=== PATIENT | female | born 1980 | race Caucasian/White ===

== ENCOUNTER 2018-07-15 06:56 | Emergency (ER) | payer OTHER ==
[~2018-07-15] VITALS: Ht 167.6 cm; Wt 113.4 kg
[~2018-07-15 06:56] MED LIST: FLONASE 0.05%50 MCG NASAL; NABUMETONE 750750 M1 PO; SUDOGEST30 MG PO
[2018-07-15] MEDS ORDERED: TRAMADOL 50 MG50 MG PO (07:36)
[2018-07-15] MEDS ORDERED: NAPROSYN500 MG PO (07:36)
[2018-07-15] MEDS ORDERED: ZPAK PO (07:36)
[2018-07-15 07:55] VITALS: BP 122/68
== END 2018-07-15 08:00 | disposition home or self-care (01) ==
LOC: ER 06:56
DX: J01.90 Acute sinusitis, unspecified (principal); J06.9 Acute upper respiratory infection, unspecified; R51 Headache; F17.210 Nicotine dependence, cigarettes, uncomplicated; Z88.0 Allergy status to penicillin

== ENCOUNTER 2018-12-13 10:19 | Emergency (ER) | payer OTHER ==
[~2018-12-13] VITALS: Ht 167.6 cm; Wt 108.9 kg
[~2018-12-13 10:19] MED LIST changes: +NAPROSYN500 MG PO; +TRAMADOL 50 MG50 MG PO; +ZPAK PO
[2018-12-13] MEDS ORDERED: ETODOLAC 400 M400 M1 PO (10:23)
[2018-12-13] MEDS ORDERED: TRAMADOL 50 MG50 MG PO (10:42)
[2018-12-13] MEDS ORDERED: MEDROLDOSEPACK PO (10:42)
[2018-12-13] MEDS ORDERED: NORFLEX100 MG PO (10:42)
[2018-12-13 11:18] VITALS: BP 131/81
== END 2018-12-13 11:19 | disposition home or self-care (01) ==
LOC: ER 10:19
DX: M54.42 Lumbago with sciatica, left side (principal); F17.210 Nicotine dependence, cigarettes, uncomplicated; G43.909 Migraine, unspecified, not intractable, without status migrainosus; Z88.0 Allergy status to penicillin; Z98.890 Other specified postprocedural states; Z85.41 Personal history of malignant neoplasm of cervix uteri

== ENCOUNTER 2019-05-01 20:52 | Emergency (ER) | payer OTHER ==
[~2019-05-01] VITALS: Ht 167.6 cm; Wt 108.9 kg
[~2019-05-01 20:52] MED LIST changes: +ETODOLAC 400 M400 M1 PO; +MEDROLDOSEPACK PO; +NORFLEX100 MG PO
[2019-05-01] MEDS ORDERED: AZITHROMYCIN 2250 MG PO (23:17)
[2019-05-01 23:36] VITALS: BP 144/77
== END 2019-05-01 23:38 | disposition home or self-care (01) ==
LOC: ER 20:52
DX: J02.0 Streptococcal pharyngitis (principal); F17.210 Nicotine dependence, cigarettes, uncomplicated; G43.909 Migraine, unspecified, not intractable, without status migrainosus; Z88.0 Allergy status to penicillin

== ENCOUNTER 2019-06-28 20:41 | Emergency (ER) | payer BC ==
[~2019-06-28] VITALS: Ht 167.6 cm; Wt 113.4 kg
[~2019-06-28 20:41] MED LIST changes: +AZITHROMYCIN 2250 MG PO
[2019-06-28] MEDS ORDERED: NOHOMEMEDICATIONS (20:55)
[2019-06-28] MEDS ORDERED: MOBIC15 MG PO (22:55)
[2019-06-28] MEDS ORDERED: NORCO 5-325 TA1 EAC1 PO (22:55)
[2019-06-28 23:17] VITALS: BP 120/86
== END 2019-06-28 23:00 | disposition home or self-care (01) ==
LOC: ER 20:41
DX: S86.911A Strain of unspecified muscle(s) and tendon(s) at lower leg level, right leg, initial encounter (principal); G43.909 Migraine, unspecified, not intractable, without status migrainosus; F17.210 Nicotine dependence, cigarettes, uncomplicated; Z98.890 Other specified postprocedural states; Z85.848 Personal history of malignant neoplasm of other parts of nervous tissue; Z88.0 Allergy status to penicillin; X50.0XXA Overexertion from strenuous movement or load, initial encounter; Y92.89 Other specified places as the place of occurrence of the external cause; Y93.89 Activity, other specified; Y99.8 Other external cause status

== ENCOUNTER 2019-08-11 13:18 | Emergency (ER) | payer BC ==
[~2019-08-11] VITALS: Ht 167.6 cm; Wt 113.4 kg
[~2019-08-11 13:18] MED LIST changes: +MOBIC15 MG PO; +NOHOMEMEDICATIONS; +NORCO 5-325 TA1 EAC1 PO
[2019-08-11] MEDS ORDERED: TESSALON PERLE100 MG PO (14:47)
[2019-08-11] MEDS ORDERED: MEDROLDOSEPACK PO (14:47)
[2019-08-11] MEDS ORDERED: PROAIR HFA8.5 GM INH (14:47)
[2019-08-11 15:00] VITALS: BP 168/88
== END 2019-08-11 15:59 | disposition home or self-care (01) ==
LOC: ER 13:18
DX: J40 Bronchitis, not specified as acute or chronic (principal); G43.909 Migraine, unspecified, not intractable, without status migrainosus; F17.210 Nicotine dependence, cigarettes, uncomplicated; Z85.41 Personal history of malignant neoplasm of cervix uteri; Z98.890 Other specified postprocedural states; Z88.0 Allergy status to penicillin

== ENCOUNTER 2019-12-10 22:48 | Emergency (ER) | payer OTHER ==
[~2019-12-10] VITALS: Ht 167.6 cm; Wt 117.9 kg
[~2019-12-10 22:48] MED LIST changes: +PROAIR HFA8.5 GM INH; +TESSALON PERLE100 MG PO
[2019-12-10] MEDS ORDERED: IBUPROFEN 800800 M1 PO (22:56)
[2019-12-11 00:32] LABS: CALCIUM 8.2 mg/dL (8.5-10.1); CREATININE 0.4 mg/dL (0.6-1.0); POTASSIUM 3.6 mmol/L (3.5-5.1)
[2019-12-11] MEDS ORDERED: MEDROLDOSEPACK PO (00:39)
[2019-12-11] MEDS ORDERED: NAPROSYN500 MG PO (00:39)
[2019-12-11] MEDS ORDERED: NORFLEX100 MG PO (00:39)
[2019-12-11 00:55] VITALS: BP 139/77
== END 2019-12-11 01:07 | disposition home or self-care (01) ==
LOC: ER 22:48
PROVIDERS: Emergency Medicine
DX: M77.9 Enthesopathy, unspecified (principal); R10.9 Unspecified abdominal pain; M79.604 Pain in right leg; M79.605 Pain in left leg; G43.909 Migraine, unspecified, not intractable, without status migrainosus; F17.210 Nicotine dependence, cigarettes, uncomplicated; Z88.0 Allergy status to penicillin; X58.XXXA Exposure to other specified factors, initial encounter; Y93.89 Activity, other specified; Y92.89 Other specified places as the place of occurrence of the external cause; Y99.0 Civilian activity done for income or pay

== ENCOUNTER 2020-03-17 17:21 | Emergency (ER) | payer OTHER ==
[~2020-03-17] VITALS: Ht 167.6 cm; Wt 117.9 kg
[~2020-03-17 17:21] MED LIST changes: +IBUPROFEN 800800 M1 PO
[2020-03-17 17:45] LABS: URINE BILIRUBIN NEGATIVE (Negative); URINE BLOOD 3+ (Negative); URINE CLARITY CLEAR; URINE COLOR YELLOW; URINE GLUCOSE-RANDOM* NEGATIVE (Negative); URINE KETONES NEGATIVE (Negative); URINE NITRITE-REFLEX NEGATIVE (Negative); URINE PROTEIN (DIPSTICK) 1+ (Negative); URINE UROBILINOGEN 0.2 E.U./dl (0.2-1.0)
[2020-03-17 17:48] LABS: URINE LEUKOCYTES-REFLEX 3+ (Negative)
[2020-03-17 17:54] LABS: URINE WBC-REFLEX >25 Many /HPF (0-5)
[2020-03-17 17:55] LABS: BACTERIA-REFLEX 1-9 Few /HPF (None Seen); CASTS None Seen /LPF (None Seen); CRYSTALS None Seen /LPF (None Seen); SQUAMOUS 0-3 Few /LPF (0-3); URINE RBC 0-2 Rare /HPF (0-2)
[2020-03-17 18:03] LABS: HEMATOCRIT 45.3 % (37.0-47.0); HEMOGLOBIN 15.8 gm/dL (12.0-15.0); MCH 30.9 pg (26.0-34.0); MCHC 34.8 g/dL (28.0-37.0); MCV 88.8 fL (80.0-100.0); RBC 5.1 mil/uL (4.20-5.00); RDW 15.1 % (10.5-14.5); WBC 9.7 thou/uL (4.0-11.0)
[2020-03-17 18:17] LABS: CALCIUM 8.8 mg/dL (8.5-10.1); CREATININE 0.7 mg/dL (0.6-1.0); POTASSIUM 3.9 mmol/L (3.5-5.1)
[2020-03-17 18:23] LABS: ALBUMIN 3.6 g/dL (3.4-5.0); TOTAL BILIRUBIN 0.6 mg/dL (0.2-1.0); TOTAL PROTEIN 7.3 g/dL (6.4-8.2)
[2020-03-17] MEDS ORDERED: NORCO 7.5-3251 EACH PO (19:46)
[2020-03-17] MEDS ORDERED: BACTRIM DS TAB1 EACH PO (19:46)
[2020-03-17] MEDS ORDERED: ONDANSETRON HCL4 M2 PO (19:46)
[2020-03-17 21:01] VITALS: BP 120/79
== END 2020-03-17 21:07 | disposition home or self-care (01) ==
LOC: ER 17:21
PROVIDERS: Emergency Medicine; Physician Assistant
DX: N12 Tubulo-interstitial nephritis, not specified as acute or chronic (principal); R50.9 Fever, unspecified; R11.0 Nausea; R14.0 Abdominal distension (gaseous); R33.9 Retention of urine, unspecified; G43.909 Migraine, unspecified, not intractable, without status migrainosus; F17.210 Nicotine dependence, cigarettes, uncomplicated; Z98.890 Other specified postprocedural states; Z85.41 Personal history of malignant neoplasm of cervix uteri; Z88.0 Allergy status to penicillin

== ENCOUNTER 2020-05-01 02:02 | Emergency (ER) | payer OTHER ==
[~2020-05-01] VITALS: Ht 167.6 cm; Wt 117.9 kg
[~2020-05-01 02:02] MED LIST changes: +BACTRIM DS TAB1 EACH PO; +NORCO 7.5-3251 EACH PO; +ONDANSETRON HCL4 M2 PO
[2020-05-01 03:45] LABS: ABSOLUTE NEUTROPHILS 4.3 thou/uL (1.4-8.2); BASOPHILS 0.8 % (0.0-2.0); EOSINOPHILS 1.7 % (0.0-3.0); HEMATOCRIT 43.4 % (37.0-47.0); HEMOGLOBIN 14.6 gm/dL (12.0-15.0); MCH 30.1 pg (26.0-34.0); MCHC 33.6 g/dL (28.0-37.0); MCV 89.6 fL (80.0-100.0); MONOCYTES 5.2 % (1.0-8.0); PLATELET COUNT 245 thou/uL (150-400); POLYS 50.3 % (36.0-66.0); RBC 4.85 mil/uL (4.20-5.00); RDW 15.9 % (10.5-14.5); WBC 8.5 thou/uL (4.0-11.0)
[2020-05-01 03:48] LABS: ANION GAP 9 mmol/L (7-16); BUN 12 mg/dL (7-18); CHLORIDE 104 mmol/L (98-107); CO2 26 mmol/L (21-32); CREATININE 0.7 mg/dL (0.6-1.0); GLUCOSE 119 mg/dL (74-106); POTASSIUM 3.7 mmol/L (3.5-5.1); SODIUM 139 mmol/L (136-145)
[2020-05-01 03:55] LABS: ALBUMIN 3.5 g/dL (3.4-5.0); DIRECT BILIRUBIN < 0.1 mg/dL (<0.1-0.2); SGOT 20 U/L (15-37); SGPT 35 U/L (30-65); TOTAL BILIRUBIN 0.2 mg/dL (0.2-1.0); TOTAL PROTEIN 7.1 g/dL (6.4-8.2)
[2020-05-01] MEDS ORDERED: DOXYCYCLINE 10100 MG PO (04:34)
[2020-05-01] MEDS ORDERED: PROMETH-CODEIN 65 ML PO (04:34)
[2020-05-01 04:52] VITALS: BP 106/76
--- NOTE | 2020-05-02 09:04 | EKG ---
[facility] [place] [address] ELECTROCARDIOGRAM REPORT Name: ANDRE SCALES Room #: [facility]P [facility]#: [id number] Admission: 05/01/20 Attend Phys: Discharge: 05/01/20 Date of : 84 Report #: [id number] THIS REPORT FOR: cc: NO FAMILY PHYSICIAN or PCP NO FAMILY PHYSICIAN or PCP Shawn Granado MD [facility] ~ THIS REPORT FOR: //name// [facility] ED Test Date: 2020-05-01 Test Time: 02:44:20 Pat Name: ANDRE SCALES Department: Room: Gender: F Cook'S Assistant: : 1980 Requested By: Abiel Aguirre Order Number: [id number] MD: Shawn Granado Measurements Intervals [place] Rate: 93 P: 58 [place]: 152 QRS: 52 QRSD: 95 T: 83 QT: 369 QTc: 459 Interpretive Statements Sinus rhythm Probable left ventricular hypertrophy Nonspecific T abnormalities, lateral leads Baseline wander in lead(s) V2,V6 No previous ECG available for comparison Electronically Signed On 05-02-2020 9:04:22 CDT by Shawn Granado [email or web address] <ELECTRONICALLY SIGNED> By: Shawn Granado MD, [facility] 05/02/20 0904 0244 0244 Shawn Granado MD, [facility] /EPI
== END 2020-05-01 04:53 | disposition home or self-care (01) ==
LOC: ER 02:02
PROVIDERS: Emergency Medicine
DX: J21.9 Acute bronchiolitis, unspecified (principal); Z20.828 Contact with and (suspected) exposure to other viral communicable diseases; J20.9 Acute bronchitis, unspecified; G43.909 Migraine, unspecified, not intractable, without status migrainosus; F17.210 Nicotine dependence, cigarettes, uncomplicated; Z88.0 Allergy status to penicillin; Z98.890 Other specified postprocedural states

== ENCOUNTER 2020-12-17 23:27 | Emergency (ER) | payer OTHER ==
[~2020-12-17] VITALS: Ht 170.2 cm; Wt 136.1 kg
[~2020-12-17 23:27] MED LIST changes: +DOXYCYCLINE 10100 MG PO; +PROMETH-CODEIN 65 ML PO
[2020-12-18 00:28] LABS: ABSOLUTE NEUTROPHILS 5.6 thou/uL (1.4-8.2); BASOPHILS 0.6 % (0.0-2.0); EOSINOPHILS 1.6 % (0.0-3.0); HEMATOCRIT 45.4 % (37.0-47.0); HEMOGLOBIN 15.3 gm/dL (12.0-15.0); LYMPHOCYTES 33.3 % (24.0-44.0); MCH 30.4 pg (26.0-34.0); MCHC 33.6 g/dL (28.0-37.0); MCV 90.3 fL (80.0-100.0); MONOCYTES 4.1 % (1.0-8.0); PLATELET COUNT 267 thou/uL (150-400); POLYS 60.4 % (36.0-66.0); RBC 5.03 mil/uL (4.20-5.00); RDW 15.6 % (10.5-14.5); WBC 9.3 thou/uL (4.0-11.0)
[2020-12-18 00:38] LABS: ANION GAP 15 mmol/L (7-16); BUN 10 mg/dL (7-18); CALCIUM 8.7 mg/dL (8.5-10.1); CHLORIDE 100 mmol/L (98-107); CO2 22 mmol/L (21-32); CREATININE 0.6 mg/dL (0.6-1.0); GLUCOSE 134 mg/dL (74-106); POTASSIUM 3.9 mmol/L (3.5-5.1); SODIUM 137 mmol/L (136-145)
[2020-12-18 00:48] LABS: ALBUMIN 3.7 g/dL (3.4-5.0); SGOT 34 U/L (15-37); SGPT 36 U/L (30-65); TOTAL BILIRUBIN 0.4 mg/dL (0.2-1.0); TOTAL PROTEIN 7.7 g/dL (6.4-8.2); TROPONIN-I <0.06 ng/mL (<0.06)
[2020-12-18] MEDS ORDERED: NEBULIZER MISCELL (01:02)
[2020-12-18] MEDS ORDERED: PREDNISONE 20 M20 MG PO (01:02)
[2020-12-18] MEDS ORDERED: TESSALON PERLE100 M1 PO (01:02)
[2020-12-18 01:10] VITALS: BP 150/76
--- NOTE | 2020-12-18 12:23 | EKG ---
[facility] [employer] [facility] [place] [address] ELECTROCARDIOGRAM REPORT Name: ANDRE SCALES Room #: DEP Tomás#: [id number] Admission: 12/17/20 Attend Phys: Discharge: 12/18/20 Date of : 84 Report #: [id number] [facility] ED Test Date: 2020-12-17 Test Time: 23:40:45 Pat Name: ANDRE SCALES Department: Room: Gender: F Band Splitter: SUZY : 1980 Requested By: Kana Fitzpatrick Order Number: [id number] MD: Ranjit Walker Measurements Intervals [place] Rate: 101 P: 42 MS: 145 QRS: 48 QRSD: 89 T: 85 QT: 345 QTc: 448 Interpretive Statements Sinus tachycardia Consider left ventricular hypertrophy Anterior Q waves, possibly due to LVH Baseline wander in lead(s) V1,V2 Compared to ECG 05/01/2020 02:44:20 Q waves now present Sinus rhythm no longer present T-wave abnormality no longer present Electronically Signed On 12-18-2020 12:23:41 CDT by Ranjit Walker [email or web address] <ELECTRONICALLY SIGNED> By: Ranjit Walker MD, FAC 12/18/20 1223 2340 2340 Ranjit Walker MD, [facility] /EPI
== END 2020-12-18 01:10 | disposition home or self-care (01) ==
LOC: ER 23:27
PROVIDERS: Emergency Medicine
DX: J40 Bronchitis, not specified as acute or chronic (principal); G43.909 Migraine, unspecified, not intractable, without status migrainosus; F17.210 Nicotine dependence, cigarettes, uncomplicated; Z79.2 Long term (current) use of antibiotics; Z79.899 Other long term (current) drug therapy; Z88.0 Allergy status to penicillin; Z20.828 Contact with and (suspected) exposure to other viral communicable diseases

== ENCOUNTER 2021-05-01 22:59 | Emergency (ER) | payer OTHER ==
[~2021-05-01] VITALS: Ht 170.2 cm; Wt 130.2 kg
[~2021-05-01 22:59] MED LIST changes: +NEBULIZER MISCELL; +PREDNISONE 20 M20 MG PO; +TESSALON PERLE100 M1 PO
[2021-05-01] MEDS ORDERED: VENTOLIN HFA 1818 GM INH (23:20)
[2021-05-01] MEDS ORDERED: FLEXERIL PO (23:36)
[2021-05-01] MEDS ORDERED: NORCO5 PO (23:36)
[2021-05-01] MEDS ORDERED: PREDNISONE 10 M10 M1 PO (23:36)
[2021-05-02 00:05] VITALS: BP 156/90
== END 2021-05-02 00:27 | disposition home or self-care (01) ==
LOC: ER 22:59
DX: S39.012A Strain of muscle, fascia and tendon of lower back, initial encounter (principal); G43.909 Migraine, unspecified, not intractable, without status migrainosus; F17.210 Nicotine dependence, cigarettes, uncomplicated; Z86.16 Personal history of COVID-19; Z85.41 Personal history of malignant neoplasm of cervix uteri; Z79.51 Long term (current) use of inhaled steroids; Z88.0 Allergy status to penicillin; X58.XXXA Exposure to other specified factors, initial encounter; Y93.89 Activity, other specified; Y92.89 Other specified places as the place of occurrence of the external cause; Y99.8 Other external cause status

== ENCOUNTER 2021-05-29 20:27 | Emergency (ER) | payer OTHER ==
[~2021-05-29] VITALS: Ht 167.6 cm; Wt 122.5 kg
[~2021-05-29 20:27] MED LIST changes: +FLEXERIL PO; +NORCO5 PO; +PREDNISONE 10 M10 M1 PO; +VENTOLIN HFA 1818 GM INH
[2021-05-29 21:45] LABS: ABSOLUTE NEUTROPHILS 3.8 thou/uL (1.4-8.2); EOSINOPHILS 1.4 % (0.0-3.0); HEMATOCRIT 41.2 % (37.0-47.0); MCH 30.5 pg (26.0-34.0); MCV 89.8 fL (80.0-100.0); MONOCYTES 5.5 % (1.0-8.0); PLATELET COUNT 197 thou/uL (150-400); POLYS 56.1 % (36.0-66.0); RBC 4.59 mil/uL (4.20-5.00); RDW 15.2 % (10.5-14.5); WBC 6.8 thou/uL (4.0-11.0)
[2021-05-29 22:01] LABS: CALCIUM 8.3 mg/dL (8.5-10.1); CREATININE 0.6 mg/dL (0.6-1.0); POTASSIUM 3.5 mmol/L (3.5-5.1)
[2021-05-29 22:13] LABS: ALBUMIN 3.4 g/dL (3.4-5.0); TOTAL BILIRUBIN 0.2 mg/dL (0.2-1.0); TOTAL PROTEIN 7.2 g/dL (6.4-8.2)
[2021-05-30 00:18] LABS: URINE BILIRUBIN NEGATIVE (Negative); URINE BLOOD TRACE (Negative); URINE CLARITY CLEAR; URINE COLOR YELLOW; URINE GLUCOSE-RANDOM* NEGATIVE (Negative); URINE KETONES NEGATIVE (Negative); URINE LEUKOCYTES-REFLEX NEGATIVE (Negative); URINE NITRITE-REFLEX NEGATIVE (Negative); URINE PROTEIN (DIPSTICK) NEGATIVE (Negative); URINE SPECIFIC GRAVITY <= 1.005 (1.005-1.035)
[2021-05-30] MEDS ORDERED: VALIUM2 MG PO (01:48)
[2021-05-30 02:15] VITALS: BP 142/79
--- NOTE | 2021-05-31 12:37 | EKG ---
[place] [address] [address] [facility] [place] [address] ELECTROCARDIOGRAM REPORT Name: ANDRE SCALES [facility] [id number] Admission: 05/29/21 Attend Phys: Discharge: 05/30/21 Date of : 84 Report #: [id number] [facility] ED Test Date: 2021-05-29 Test Time: 20:31:11 Pat Name: ANDRE SCALES Department: Room: Gender: F Die Tripper: [id number] : 1980 Requested By: Enrrique Piedra Order Number: [id number] MD: Shawn Granado Measurements Intervals [place] Rate: 104 P: 54 [place]: 155 QRS: 40 QRSD: 97 T: 98 QT: 360 QTc: 474 Interpretive Statements Sinus tachycardia Anterior infarct, old Nonspecific T abnormalities, lateral leads Compared to ECG 12/17/2020 23:40:45 Anterior Q waves are more prominent Electronically Signed On 05-31-2021 12:37:07 CDT by Shawn Granado [email or web address] <ELECTRONICALLY SIGNED> By: Shawn Granado MD, [facility] 05/31/21 1237 30 30 Shawn Granado MD, [facility] /EPI
== END 2021-05-30 02:00 | disposition home or self-care (01) ==
LOC: ER 20:27
PROVIDERS: Student in an Organized Health Care Education/Training Program
DX: R10.31 Right lower quadrant pain (principal); F17.210 Nicotine dependence, cigarettes, uncomplicated; Z79.899 Other long term (current) drug therapy; Z88.0 Allergy status to penicillin

== ENCOUNTER 2021-10-27 20:05 | Emergency (ER) | payer OTHER ==
[~2021-10-27] VITALS: Ht 167.6 cm; Wt 117.9 kg
[~2021-10-27 20:05] MED LIST changes: +VALIUM2 MG PO
[2021-10-27 20:06] VITALS: BP 163/98
[2021-10-27] MEDS ORDERED: TESSALON PERLE100 MG PO (21:16)
== END 2021-10-27 21:39 | disposition home or self-care (01) ==
LOC: ER 20:05
DX: J06.9 Acute upper respiratory infection, unspecified (principal); Z20.822 Contact with and (suspected) exposure to COVID-19; R05.9 Cough, unspecified; G43.909 Migraine, unspecified, not intractable, without status migrainosus; F17.210 Nicotine dependence, cigarettes, uncomplicated; Z86.16 Personal history of COVID-19; Z85.41 Personal history of malignant neoplasm of cervix uteri; Z98.890 Other specified postprocedural states; Z79.51 Long term (current) use of inhaled steroids; Z79.899 Other long term (current) drug therapy; Z88.0 Allergy status to penicillin

== ENCOUNTER 2021-11-03 06:09 | Emergency (ER) | payer OTHER ==
[~2021-11-03] VITALS: Ht 167.6 cm; Wt 120.2 kg
[2021-11-03 06:40] LABS: ABSOLUTE NEUTROPHILS 8.8 thou/uL (1.4-8.2); BASOPHILS 1.2 % (0.0-2.0); EOSINOPHILS 0.8 % (0.0-3.0); HEMATOCRIT 42.1 % (37.0-47.0); HEMOGLOBIN 14.2 gm/dL (12.0-15.0); LYMPHOCYTES 27.2 % (24.0-44.0); MCHC 33.8 g/dL (28.0-37.0); MCV 88.7 fL (80.0-100.0); MONOCYTES 5.6 % (1.0-8.0); PLATELET COUNT 303 thou/uL (150-400); POLYS 65.2 % (36.0-66.0); RBC 4.75 mil/uL (4.20-5.00); RDW 14.7 % (10.5-14.5); WBC 13.4 thou/uL (4.0-11.0)
[2021-11-03 06:46] LABS: CALCIUM 8.5 mg/dL (8.5-10.1); CREATININE 0.6 mg/dL (0.6-1.0)
[2021-11-03 06:50] LABS: POTASSIUM 3.9 mmol/L (3.5-5.1)
[2021-11-03] MEDS ORDERED: PREDNISONE 20 M20 MG PO (10:27)
[2021-11-03] MEDS ORDERED: NAPROSYN500 MG PO (10:27)
[2021-11-03 10:48] VITALS: BP 125/66
--- NOTE | 2021-11-03 11:57 | EKG ---
[facility] [place] [address] ELECTROCARDIOGRAM REPORT Name: ANDRE SCALES Room #: DEP [place]#: [id number] Admission: 11/03/21 Attend Phys: Discharge: 11/03/21 Date of : 84 Report #: [id number] [facility] ED Test Date: 2021-11-03 Test Time: 06:41:01 Pat Name: ANDRE SCALES Department: Room: Gender: F Regional Facilities Manager: JERRELL : 1980 Requested By: Angus Ruiz Order Number: [id number] MD: Ranjit Walker Measurements Intervals [place] Rate: 112 P: 46 [place]: 136 QRS: 32 QRSD: 95 T: 78 QT: 372 QTc: 508 Interpretive Statements Sinus tachycardia Probable left ventricular hypertrophy Borderline prolonged QT interval Compared to ECG 05/29/2021 20:31:11 Myocardial infarct finding no longer present T-wave abnormality no longer present Electronically Signed On 11-03-2021 11:57:30 HOUSE FATHER by Ranjit Walker [email or web address] <ELECTRONICALLY SIGNED> By: Ranjit Walker MD, [facility] 11/03/21 1157 D: [id number] 0 Ranjit Walker MD, [facility]ACC /EPI
[2021-11-04] MEDS ORDERED: NORCO5 PO (21:46)
[2021-11-04] MEDS ORDERED: DOXYCYCLINE 10100 MG PO (21:46)
== END 2021-11-03 10:48 | disposition home or self-care (01) ==
LOC: ER 06:09
PROVIDERS: Emergency Medicine
DX: J18.8 Other pneumonia, unspecified organism (principal); Z20.822 Contact with and (suspected) exposure to COVID-19; F17.210 Nicotine dependence, cigarettes, uncomplicated; G43.909 Migraine, unspecified, not intractable, without status migrainosus; Z79.899 Other long term (current) drug therapy; Z88.0 Allergy status to penicillin

== ENCOUNTER 2021-11-04 19:59 | Emergency (ER) | payer OTHER ==
[~2021-11-04] VITALS: Ht 167.6 cm; Wt 122.5 kg
[2021-11-04 20:00] VITALS: BP 148/82
[2021-11-04] MEDS ORDERED: DOXYCYCLINE 10100 MG PO (21:46)
[2021-11-04] MEDS ORDERED: NORCO5 PO (21:46)
== END 2021-11-04 21:53 | disposition home or self-care (01) ==
LOC: ER 19:59
DX: R07.81 Pleurodynia (principal); J18.9 Pneumonia, unspecified organism; G43.909 Migraine, unspecified, not intractable, without status migrainosus; F17.210 Nicotine dependence, cigarettes, uncomplicated; Z86.16 Personal history of COVID-19; Z85.41 Personal history of malignant neoplasm of cervix uteri; Z98.890 Other specified postprocedural states; Z79.51 Long term (current) use of inhaled steroids; Z79.899 Other long term (current) drug therapy; Z79.891 Long term (current) use of opiate analgesic; Z88.0 Allergy status to penicillin